=== PATIENT | male | born 1940 ===

== ENCOUNTER 2024-12-23 05:54 | Day surgery (SDC) | payer OTHER, SELFPAY ==
[2024-12-08 11:20] LABS: Hematocrit 45.3 % (39.0-52.0); Hemoglobin 15.2 g/dL (13.0-18.0); Mean Corp Hgb Conc. 33.6 g/dL (33.0-37.0); Mean Corpuscular Hgb 31.1 pg (27.0-31.0); Mean Corpuscular Volume 92.8 fL (80.0-94.0); Mean Platelet Volume 11.3 fL (7.4-10.4); Platelet Count 224 10^3/uL (130-400); Red Blood Cell Count 4.88 10^6/uL (4.70-6.10); Red Cell Dist. Width 12.9 % (11.5-14.5); White Blood Cell Count 5.6 10^3/uL (4.8-10.8)
[2024-12-08 11:59] LABS: ALT (SGPT) 28 U/L (0-50); AST (SGOT) 58 U/L (17-59); Albumin 4.4 g/dl (3.5-5.0); Alkaline Phosphatase 93 U/L (38-126); Blood Urea Nitrogen 15 mg/dl (9-20); Calcium 9.6 mg/dl (8.4-10.2); Carbon Dioxide 33 mmol/L (22-30); Chloride 105 mmol/L (98-107); Glucose 135 mg/dl (70-99); Potassium 4.4 mmol/L (3.5-5.1); Sodium 143 mmol/L (135-145); Total Bilirubin 0.9 mg/dl (0.2-1.3); Total Protein 6.8 g/dl (6.3-8.2); eGFR > 60.00
[2024-12-08 13:17] VITALS: BMI 26.2
[2024-12-23] VITALS (12 sets, daily range): BP systolic 119–150; BP diastolic 74–100; BMI 26.2
[2024-12-23] MEDS: NORMOSOL-R/PLASMALYTE-A 1000 IV (06:25)
[2024-12-23] MEDS: DILAUDID 0.25 MG IV ×2 (08:32→08:40)
[2024-12-23] MEDS: DEMEROL 12.5 MG IV (09:01)
== END 2024-12-23 10:04 | disposition home or self-care (01) ==
LOC: SDS 05:54
PROVIDERS: ATTENDING PHYSICIAN Otolaryngology; FAMILY PHYSICIAN Family Medicine
DX: C32.0 Malignant neoplasm of glottis (principal); R49.0 Dysphonia
CPT/HCPCS: 31536; 88305; 80053; 85027; 88342; 93005